=== PATIENT | female | born 1985 | race Two or more races ===

== ENCOUNTER 2017-11-19 18:58 | Emergency (ER) | payer MEDICAID ==
[~2017-11-19] VITALS: Ht 167.6 cm; Wt 59.0 kg
[~2017-11-19 18:58] MED LIST: NO MEDS
--- NOTE | 2017-11-19 19:05 | NUR ---
pt ambulatory to er bed 11 c/o epigastric pain describing it as burning x 3 days. worst when eating spicy foods. denies n/v. stable vitals. awaiting md powell.
--- NOTE | 2017-11-19 20:39 | NUR ---
lilo rajput at bedside for eval.
--- NOTE | 2017-11-19 20:49 | NUR ---
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
[2017-11-19 20:54] LABS: BASOPHILS % (AUTO) 0.3 % (0.0-2.0); EOSINOPHILS % (AUTO) 0.4 % (0.0-6.0); HEMATOCRIT 39 % (33-45); HEMOGLOBIN 13.4 g/dL (11.5-14.8); LYMPHOCYTES # (AUTO) 1.6 /CMM (0.8-4.8); LYMPHOCYTES % (AUTO) 16.3 % (20.0-44.0); MEAN CORPUSCULAR HEMOGLOBIN 30 PG (26.0-33.0); MEAN CORPUSCULAR HGB CONC 34 g/dl (31.0-36.0); MEAN CORPUSCULAR VOLUME 89 fL (82-100); MONOCYTES # (AUTO) 0.7 /CMM (0.1-1.30); MONOCYTES % (AUTO) 7.7 % (2.0-12.0); NEUTROPHILS # (AUTO) 7.4 /CMM (1.8-8.9); NEUTROPHILS % (AUTO) 75.3 % (43.0-81.0); PLATELET COUNT (AUTO) 277 /CMM (150-450); RDW COEFFICIENT OF VARIATION 12.4 (11.5-15.0); RED BLOOD CELL COUNT(AUTO) 4.43 MIL/uL (4.0-5.2); WHITE BLOOD COUNT (AUTO) 9.7 K/uL (4.3-11.0)
[2017-11-19 21:04] LABS: CALCIUM, SERUM 9.1 mg/dL (8.5-10.1); CREATININE 0.6 mg/dL (0.6-1.3); POTASSIUM 3.8 mmol/L (3.5-5.1)
[2017-11-19 21:10] LABS: ALBUMIN 3.6 g/dL (3.4-5.0); BILIRUBIN,DIRECT 0.2 mg/dL (0.0-0.2); BILIRUBIN,TOTAL 0.7 mg/dL (0.2-1.0); TOTAL PROTEIN, SERUM 8.1 g/dL (6.4-8.2)
[2017-11-19 21:12] LABS: APPEARANCE,URINE Slightly Cloudy (CLEAR); BILIRUBIN,URINE SMALL (NEGATIVE); BLOOD, URINE Small Ery/uL (NEGATIVE); COLOR,URINE Dark (YELLOW); KETONES,URINE >=160 (NEGATIVE); LEUKOCYTE ESTERASE ,URINE Small (NEGATIVE); NITRITE, URINE Negative (NEGATIVE); PROTEIN,URINE Negative (NEGATIVE); UGLUCOSE Negative (NEGATIVE)
[2017-11-19 21:24] LABS: BACTERIA,URINE Moderate /HPF (None Seen); SQUAMOUS EPITHELIAL CELL,UR Moderate /HPF (None Seen)
[2017-11-19] MEDS ORDERED: PANTOPRAZOLE 40 MG TABLET.DR PO ONE (21:25)
[2017-11-19] MEDS ORDERED: ACETAMINOPHEN ES 500 MG TABLET ONE (21:25)
[2017-11-19 21:26] LABS: MUCUS,URINE Moderate /LPF (None Seen)
[2017-11-19] MEDS ORDERED: PANTOPRAZOLE 40 MG VIAL INJ ONE (21:30)
[2017-11-19] MEDS ORDERED: ACETAMINOPHEN ES 500 MG TABLET PO ONE (21:30)
--- NOTE | 2017-11-19 21:40 | NUR ---
Patient discharged to home in stable condition. Written and verbal after care instructions given. Patient verbalizes understanding of instruction.
[2017-11-19 21:41] VITALS: BP 128/84
== END 2017-11-19 21:41 | disposition home or self-care (01) ==
LOC: ER 19:00
DX: K21.9 Gastro-esophageal reflux disease without esophagitis (principal); R10.13 Epigastric pain
CPT/HCPCS: 36415; 80048; 80076; 81001; 83690; 84703; 85025; 87086; 99284; A4606; Z7610; 81000-TC